=== PATIENT | male | born 1995 | race Caucasian/White ===

== ENCOUNTER 2023-01-04 01:09 | Emergency (ER) | payer OTHER ==
[2023-01-04 01:27] VITALS: BP 132/79; RESP 18; TEMP 98.1; BMI 28.0
[2023-01-04] MEDS ORDERED: ONDANSETRON 4 MG/2 ML VIAL IVPUSH ONE (02:24)
[2023-01-04] MEDS ORDERED: FAMOTIDINE 20 MG/50 ML IVPB 20 MG/50 ML MG IVPB ONE ×2 (02:24→02:38)
[2023-01-04] MEDS ORDERED: SODIUM CHLORIDE 0.9% 500 ML INFUS.BAG IV ONE (02:24)
[2023-01-04] MEDS ORDERED: ACETAMINOPHEN 1000 MG/100 ML BAG IVPB ONE (02:24)
[2023-01-04] MEDS ORDERED: ACETAMINOPHEN INJECTION 100 ML IVPB ONE (02:38)
[2023-01-04] MEDS ORDERED: ONDANSETRON 4 MG/2 ML VIAL ONE (02:40)
[2023-01-04 02:56] LABS: BASO % 0.3 % (0-2.0); EOS % 2.2 % (0-4.5); HEMATOCRIT 48.5 % (35.4-49); HEMOGLOBIN 16.3 GM/dL (11.7-16.9); LYMPH % 14.8 % (8-40); MCH 29.5 pg (25.7-33.7); MCHC 33.6 g/dl (32.0-35.9); MEAN CELL VOLUME 87.8 fl (80-96); MEAN PLT VOLUME 7.9 fl (7.5-11.1); MONO % 13.3 % (3.8-10.2); NEUT % 69.4 % (42.8-82.8); PLATELET COUNT 309 10^3/uL (134-434); RBC 5.52 M/mm3 (4.00-5.60); RDW 13.1 % (11.9-15.9); WHITE BLOOD COUNT 8.9 K/mm3 (4.0-10.0)
[2023-01-04 03:20] LABS: CALCIUM 9.6 mg/dL (8.5-10.1)
[2023-01-04 03:21] LABS: ALBUMIN 4.3 g/dl (3.4-5.0); BLOOD UREA NITROGEN 14.3 mg/dL (7-18); MAGNESIUM 2.1 mg/dL (1.8-2.4)
[2023-01-04 03:24] LABS: CREATININE 1.1 mg/dL (0.55-1.3)
[2023-01-04 03:25] LABS: BILIRUBIN,TOTAL 1.1 mg/dL (0.2-1); TOT PROT 8.3 g/dl (6.4-8.2)
[2023-01-04 05:06] VITALS: PULSE 92
== END 2023-01-04 05:08 | disposition home or self-care (01) ==
LOC: JER 01:09
PROC: 3E033GC Introduction of Other Therapeutic Substance into Peripheral Vein, Percutaneous Approach (ICD-10-PCS; principal; 2023-01-04)
PROC: 3E033GC Introduction of Other Therapeutic Substance into Peripheral Vein, Percutaneous Approach (ICD-10-PCS; 2023-01-04)
PROC: 3E033GC Introduction of Other Therapeutic Substance into Peripheral Vein, Percutaneous Approach (ICD-10-PCS; 2023-01-04)
DX: R11.2 Nausea with vomiting, unspecified (principal); R19.7 Diarrhea, unspecified; M79.10 Myalgia, unspecified site; R10.13 Epigastric pain; R50.9 Fever, unspecified; Z20.822 Contact with and (suspected) exposure to COVID-19
CPT/HCPCS: 0241U-QW; 36415; 80053; 83690; 83735; 85025; 87070; 87651; 99284-25